=== PATIENT | female | born 1950 | race Caucasian/White ===

== ENCOUNTER 2024-01-25 10:04 | Outpatient (CLI) | payer MEDICARE, SELFPAY ==
--- NOTE | ~2024-01-25 | MM_ITS ---
EXAMINATION: MM screening ken BI w nancy HISTORY: Screening mammogram TECHNIQUE: Craniocaudal and mediolateral oblique 3-D tomosynthesis images were obtained and synthetic 2-D images were generated. CAD analysis was submitted and interpreted. COMPARISON: No prior mammogram is available for comparison at this institution. BREAST PARENCHYMAL COMPOSITION:Not Dense. The breasts are almost entirely fatty FINDINGS: No suspicious mass, calcification, or architectural distortion are identified in either justa ast to suggest malignancy. There has been no suspicious interval change. IMPRESSION: No mammographic evidence of malignancy. Recommend routine screening mammography in one year. BI-RADS Category 1: Negative Reviewed, dictated and finalized at location . 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
--- NOTE | ~2024-01-25 | DEXA_ITS ---
Bone Density Report Name: KATHRYN KEARNS Age: 73 Sex: Female Ethnicity: White Date of : 1950 Indication: postmenopausal; screening for osteoporosis; height loss; Referring Provider: HARI VELÁSQUEZ Study: Bone densitometry was performed. Exam Date: January 25, 2024 Accession number: [id number] Bone Density: Region BMD T-score Z-score Classification AP Spine(L1-L4) 0.824 -2.0 0.2 Osteopenia Femoral Neck (Left) 0.418 -3.9 -2.0 Osteoporosis Total Hip (Left) 0.718 -1.8 -0.2 Osteopenia Femoral Neck (Right) 0.454 -3.6 -1.7 Osteoporosis Total Hip (Right) 0.666 -2.3 -0.7 Osteopenia Total Hip Mean 0.692 -2.1 -0.5 Osteopenia World Health Organization criteria for BMD impression classify patients as: Normal (T-score at or above -1.0), Osteopenia (T-score between -1.0 and -2.5), or Osteoporosis (T-score at or below -2.5). 10-year Fracture Risk: FRAX not reported because: Some T-score for Spine Total or Hip Total or Femoral Neck at or below -2.5 Clinical Information Provided by Patient: Has used the following medications: Vitamin D Patient maximum height was 63 Menopause Age: 53 No regular weight bearing exercise Drinks caffeinated beverages Onset of menses at age 14 Number of children 1 Impression: The patient has osteoporosis, based on the Left Femoral Neck T-score. Discussion: HIGH RISK OF FRACTURE. BONE DENSITY IS UNDESIRABLY LOW AT ONE OR MORE SKELETAL SITES, CONSISTENT WITH OSTEOPOROSIS. ALSO, BONE DENSITY IS LOWER THAN EXPECTED FOR AGE AND SEX AT ONE OR MORE SKELETAL SITES; RECOMMEND A DILIGENT SEARCH FOR SECONDARY CAUSES OF BONE LOSS. This patient's lowest T-score meets the World Health Organization's (WHO) criteria for osteoporosis at one or more sites (T-score -2.5 or below). In untreated patients, the risk of osteoporotic fracture increases approximately two-fold for each 1.0 SD decrease in T-score. Low bone density is not the only risk factor for fracture; also consider factors such as patient's age, frailty or poor health, risk of falling, risk of injury, previous osteoporotic fracture, family history of osteoporosis, cigarette smoking, low body weight, etc. Not everyone with low bone mineral density has osteoporosis; osteomalacia and other metabolic bone disorders should also be considered. Patients who have osteoporosis should be evaluated for specific diseases and conditions (secondary causes) that may cause or contribute to bone loss. The [place] [employer] Endocrinologists (AACE) and National Osteoporosis Foundation (NOF) recommend pharmacologic intervention for all postmenopausal women whose T-score is in this range. Also, this patient's bone mineral density is below the range considered normal for healthy age-, sex-, and race-matched controls at least one site (Z-score -2.0 or below). This warrants careful evaluation for diseases and conditions that may contribute to accelerated bone loss. The patient should follow a healthful lifestyle (good nutrition with adequate calcium and vitamin D, and appropriate weight-bearing exercise). Follow-Up: Consider a repeat BMD and Vertebral Fracture Assessment (VFA) exam in 2 years or sooner if medically necessary, to reassess this patient's status. Reported by: MADAY on 01/25/2024 10:52:00 AM. Reviewed, dictated and finalized at location AHernesto HASKINS
== END 2024-01-25 10:05 | disposition home or self-care (01) ==
LOC: ANHIMG 10:04
PROVIDERS: PCP Family Medicine; Visit Provider Family Medicine
DX: Z12.31 Encounter for screening mammogram for malignant neoplasm of breast (principal); M85.89 Other specified disorders of bone density and structure, multiple sites; Z78.0 Asymptomatic menopausal state
CPT/HCPCS: 77063; 77067; 77080

== ENCOUNTER 2024-08-03 10:08 | Inpatient (IN) | payer MEDICARE, SELFPAY ==
--- NOTE | ~2024-08-03 | CT_ITS ---
EXAMINATION: CT abdomen pelvis wo con DATE: 08/03/2024 11:59 INDICATION: Leukocytosis, elevated liver function tests and acute renal insufficiency TECHNIQUE: Computed tomography (CT) of the abdomen and pelvis was performed without intravenous contr ast. Automated exposure control and iterative reconstruction technique were employed. The dose-length product was 243.85 mGy-cm. COMPARISON: None FINDINGS: Minimal dependent atelectasis in bilateral lower lobes. Heart size is normal. Atherosclerotic coronar y artery calcific location. No pericardial or pleural effusion. 5.4 cm bilobed cyst at the caudal tip of the liver. Gallbladder, spleen, pancreas, bilateral adrenal glands and kidneys are normal. Modera te diverticulosis along the sigmoid colon without adjacent from trace stranding to suggest diverticul itis. Small bowel and appendix are normal. Bladder is normal. Calcified uterine fibroid. Bilateral ad nexal tubal ligation rings. No free intraperitoneal gas or fluid. No pathologically enlarged abdomina l or pelvic lymphadenopathy. Mild lumbar and lower thoracic spondylosis. IMPRESSION: 1. No acute intra-abdominal/pelvic process. 2. Diverticulosis. 3. Calcified uterine fibroids. Reviewed, dictated and finalized at location A.
--- NOTE | ~2024-08-03 | XR_ITS ---
EXAMINATION: XR chest 1V portable DATE: 08/03/2024 11:06 INDICATION: Weakness TECHNIQUE: frontal view of the chest was obtained. COMPARISON: None FINDINGS: Mild linear discoid atelectasis at the lateral left lower lung zone. The cardiomediastinal silhouette is normal. Mild to moderate degenerative skeletal changes at the cervical spine and bilateral should ers. IMPRESSION: 1. Mild atelectasis in the left lower lung zone. No other acute cardiopulmonary disease. Reviewed, dictated and finalized at location A.
--- NOTE | 2024-08-03 10:16 | ECG_ITS ---
Test Date: 2024-08-03 10:22:54 Measurements Intervals [place] Rate: 95 P: 0 AL: 0 QRS: -1 QRSD: 152 T: -52 QT: 381 QTc: 480 Interpretive Statements ATRIAL TACHYCARDIA WITH VARIABLE BLOCK LEFT BUNDLE BRANCH BLOCK BASELINE ARTIFACT- I, II, III, AVR, AVL, AVF, V4-V6 ABNORMAL ECG No previous ECG available for comparison Electronically Signed On 08-03-2024 19:52:16 CDT by Leodan Vazquez D.O.
[2024-08-03 10:19] VITALS: BP 150/118; PULSE 112; RESP 24; TEMP 36.5; O2SAT 98
[2024-08-03 10:26] VITALS: O2SAT 98
[2024-08-03] MEDS: LACTATED RINGERS 1,000 ML 999 ML IV CONT ×2 (10:42→14:06)
[2024-08-03 10:43] VITALS: BP 146/109; PULSE 94; RESP 27; O2SAT 99
[2024-08-03 10:45] LABS: Basophils Absolute Auto 0.1 K/mm3 (0.0-0.1); Basophils Percent Auto 0.2 % (0.2-1.2); Hematocrit 53.4 % (37.0-47.0); Hemoglobin 16.2 g/dL (12.0-15.0); Immature Granulocyte Absolute 0.66 K/mm3 (0.00-0.031); Immature Granulocyte Percent A 2.3 % (0-0.5); Lymphocytes Percent Auto 7.7 % (18.3-44.2); Mean Corpuscular HGB Conc 30.3 g/dl (32-36); Mean Corpuscular Hemoglobin 29.3 pg (26-34); Mean Corpuscular Volume 96.6 fl (80-100); Mean Platelet Volume 10.8 fl (7.4-10.4); Monocytes Absolute Auto 2.4 K/mm3 (0.1-0.6); Monocytes Percent Auto 8.3 % (2.6-8.5); Neutrophils Absolute Auto 23.3 K/mm3 (1.3-6.7); Neutrophils Percent Auto 81.5 % (45.5-73.1); Platelet Count Result 374 k/mm3 (150-375); Red Blood Count 5.53 M/mm3 (4.2-5.4); White Blood Count 28.6 K/mm3 (4.5-10.0)
[2024-08-03 10:54] LABS: Add Urine Microscopic? YES; Appearance Urine Clear (Clear); Bacteria Urine None Seen /hpf; Bilirubin Urine Negative (Negative); Blood Urine 2+ (Negative); Color Urine Yellow (Yellow); Glucose Urine UA 3+ mg/dL (Negative); Hyaline Casts Urine Present /lpf; Ketones Urine 2+ mg/dL (Negative); Leukocyte Esterase Ur Negative LEU/UL (Negative); Need Manual Microscopic Reviewed; Nitrate Urine Negative (Negative); Protein Urine 1+ mg/dL (Negative); RBC Urine 0-2 /hpf (0-2); Specific Grav Ur 1.029 (1.001-1.035); Squamous Epithelial Cell Urine None Seen /hpf (Few); Urobilinogen Urine 0.2 mg/dL (<2.0); WBC Urine 0-5 /hpf (0-3); pH Urine 5.5 (5.0-9.0)
[2024-08-03 10:56] LABS: Alanine Aminotransferase 389 U/L (6-35); Albumin Level 4.8 g/dL (3.5-5.1); Alkaline Phosphatase 67 U/L (38-126); Aspartate Amino Transferase 646 U/L (14-36); Bilirubin,Total 0.6 mg/dL (0.2-1.3); Blood Urea Nitrogen 32 mg/dL (7-17); Calcium 9.5 mg/dL (8.4-10.2); Carbon Dioxide < 5 mmol/L (22-30); Chloride 105 mmol/L (98-107); Estimated CRCL calculation 17 ml/min; Estimated Glomerular Filt Rate 23; Glucose 451 mg/dL (65-110); Potassium 4.6 mmol/L (3.4-5.0); Sodium 139 mmol/L (137-145)
--- NOTE | 2024-08-03 10:56 | PC.NURSE ---
Bedside report given to Anh Rucker RN, all questions answered
[2024-08-03 13:23] LABS: Magnesium 3.1 mg/dL (1.6-2.3); Phosphorus 5.4 mg/dL (2.5-4.5)
[2024-08-03 13:26] LABS: Hemoglobin A1C 7.5 % (<5.7)
[2024-08-03 13:40] VITALS: PULSE 110; RESP 23; O2SAT 97
[2024-08-03 13:51] LABS: Fractional Inspired Oxygen 21 %; HCO3 VBG 8.1 mEq/l (24.0-30.0)
[2024-08-03 13:57] LABS: pH VBG 7.108 (7.300-7.400)
[2024-08-03 13:58] LABS: Device ROOM AIR; PCO2 VBG 26.3 mmHg (42.0-48.0); PO2 VBG < 27.0 mmHg (35.0-45.0)
--- NOTE | 2024-08-03 13:59 | PCRCNOTE ---
VBG LATE DUE TO INTERNET BEING DOWN
[2024-08-03] MEDS: INSULIN HUMAN REGULAR (*BKC) 100 UNITS/ML 8.6 UNITS IV PUSH (14:02)
[2024-08-03] MEDS: INSULIN HUMAN REGULAR (*BKC) 100 UNITS in SODIUM CHLORIDE 0.9% IV 99 ML 5.74 UNITS IV CONT (14:05)
--- NOTE | 2024-08-03 14:05 | WPDCNINT ---
Assessment and Plan Assessment and plan (1) Type 2 diabetes mellitus: Code(s): E11.9 - Type 2 diabetes mellitus without complications Status: Acute Assessment and Plan: Patient presented with hyperglycemia, excessive sleepiness, lethargy -in the ER patient was found to be in diabetic ketoacidosis, elevated anion gap, undetectable CO2 can hyperglycemia -patient was given 1 L IV fluid bolus after which the patient pulled out her IV line as she has cognitive impairment -a 2nd IV line was inserted, patient receiving a 2nd IV fluid bolus and started on insulin infusion -continue insulin infusion per DKA protocol -once anion gap closes and CO2 improves and transition to long-acting insulin sliding scale insert -hemoglobin A1c is 7.5 this admission -elevated WBC count to 28.6 -UA is not reflective of UTI -Chest x-ray showed mild atelectasis in the left lower lung zone. No other acute cardiopulmonary disease CT abdomen and pelvis without contrast showed no acute intra abdominal/pelvic process, diverticulosis, calcified uterine fibroids. -will hold off antibiotics -check serial BMPs per DKA protocol Acute kidney injury: Likely related to decreased p.o. intake, increased urine output, diabetic ketoacidosis -will give additional IV fluid bolus once she comes to the ICU -monitor urine output, renal function and electrolytes -no history of chronic kidney disease as per -creatinine on admission was 2.12 New onset irregularly irregular rhythm,, rate controlled could be related severe acidosis, -will give a therapeutic dose of Lovenox -continue to monitor, blood pressure is stable (2) Hyperlipidemia: Code(s): E78.5 - Hyperlipidemia, unspecified Status: Acute Assessment and Plan: will restart atorvastatin when patient starts taking p.o. (3) Cognitive impairment: Code(s): R41.89 - Other symptoms and signs involving cognitive functions and awareness Status: Acute Assessment and Plan: According to the primary care provider's note patient has severe cognitive impairment Plan DVT prophylaxis: Lovenox Stress ulcer prophylaxis: Proton Nutrition: NPO for now Code Status: Full code Critical Care Time Spent: 48 minutes Discussed with patient's at bedside in the ER, updated with patient's condition, plan of care. I answered all his questions Due to a high probability of clinically significant, life threatening deterioration, the patient required my highest level of preparedness to intervene emergently and I personally spent this critical care time directly and personally managing the patient. This critical care time included obtaining a history; examining the patient; pulse oximetry; ordering and review of studies; arranging urgent treatment with development of a management plan; evaluation of patient's response to treatment; frequent reassessment; and discussions with other providers. It was exclusive of separately billable procedures and treating other patients and teaching time. Please see Assessment and Plan section and the rest of the note for further information on patient assessment and treatment This dictation may have been done utilizing a voice recognition system. Attempts have been made to correct errors. However, there may be uncorrected grammatical, spelling, and recognitions errors present. 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 intake and hyperglycemia. History was obtained from , stated that she has not been eating since Sunday08/01/2024, and has been sleeping a lot. On the day of admission he called his daughter and both of them could not get her out of bed that she was significantly weak and lethargic. Daughter in the car and brought to the ED which she was found to be diabetic ketoacidosis with elevated blood sugars increased anion gap and undetectable CO2 <5. WBC count of 28.6, hemoglobin 16.2, platelets 374. VBG showed a pH of 7.108. Sodium 139, potassium 4.6, chloride 105, CO2<5, BUN 32, creatinine 2.12 (no baseline creatinine available in our system) patient's denies any chronic kidney disease. Blood sugars were 451, hemoglobin A1c of 7.5, phosphorus 5.4, magnesium 3.1, AST 646, ALT 389 1 total bili 0.6. Urinalysis is positive for proteins, glucose, ketones and blood, not reflective of UTI Chest x-ray showed mild atelectasis in the left lower lung zone. No other acute cardiopulmonary disease CT abdomen and pelvis without contrast showed no acute intra abdominal/pelvic process, diverticulosis, calcified uterine fibroids. Patient was seen and examined in the ER. Is awake, alert, not oriented to place or person, she is only oriented to herself, knew the date of . She thought she is at home. According the and notes from primary care provider she has significant cognitive impairment. According the he has a sedentary lifestyle, denies any tobacco, alcohol or illicit drug abuse. Patient denies any headache, vision changes (though she states she wears glasses), also denies chest pain, shortness a breath, abdominal pain, nausea vomiting at this time. According the patient has been taking her medications regularly, metformin and Jardiance. Patient's denies any congestive heart failure history Review of Systems Review of Systems: All systems reviewed & are unremarkable except as noted in HPI and below PMFSH Past Medical History Medical History Diabetes Allergies Surgical History Surgical History History of parathyroid surgery Social History Social History Social History: Caffeine Tea Daily Smoking status: Never smoker Alcohol intake: never Substance use: never Substance use type: does not use Do You Feel Safe in your Home?: Yes Lack of Transportation: No Lack of Food: Never True Current Housing: I Have Housing Concerned About Future Housing: No Difficulty Paying Gas/Electric Bills: No Difficulty Paying for Meds: No Currently Unemployed: No Difficulty w/ Childcare or Family Care: No Living arrangements: with family Gender identity (if verbalized by the patient): Female Sexual Orientation (if Verbalized by the Patient): Straight or Heterosexual Meds Home Medications and Allergies Home Medications ?Medication ?Instructions ?Recorded ?Confirmed ?Type alendronate 70 mg tablet 70 mg PO WEEKLY #13 tabs 02/13/24 05/21/24 Rx atorvastatin 40 mg tablet (Lipitor) 40 mg PO QHS #90 tabs 02/13/24 05/21/24 Rx empagliflozin 25 mg tablet 25 mg PO DAILY #90 tabs 02/13/24 05/21/24 Rx (Jardiance) ergocalciferol (vitamin D2) 1,250 1,250 mcg PO WEEKLY #13 caps 04/30/24 05/21/24 Rx mcg (50,000 unit) capsule (Vitamin D2) metformin 1,000 mg tablet 1,000 mg PO BIDWMEAL #180 tabs 05/29/24 Rx Allergies Allergy/AdvReac Type Severity Reaction Status Date / Time No Known Allergies Allergy Verified 08/03/24 10:10 Vital Signs Vital Signs - 24 hr 08/03/24 10:19 08/03/24 10:26 08/03/24 10:43 Temperature 97.7 F Pulse Rate 112 H 94 Respiratory Rate 24 H 27 H Blood Pressure 150/118 H 146/109 H Pulse Oximetry 98 98 99 Oxygen Delivery Room Air Room Air 08/03/24 13:40 Temperature Pulse Rate 110 H Respiratory Rate 23 H Blood Pressure Pulse Oximetry 97 Oxygen Delivery Room Air Exam Narrative: General: Pleasant female, in no acute distress at this time HEENT:? Pupils equal and reactive, sclera is clear, dry mucosa Neck:? Supple Respiratory:? Clear to auscultation bilaterally, no wheezing, adequate air entry Cardiac:? Irregularly irregular, rate control Abdomen:? Soft, nontender nondistended, hypoactive bowel sound Extremities:? No edema, palpable pedal pulses Neuro:? Patient is awake, alert, follows simple commands in all extremities, oriented to only person, did not know a she has, nor the year. She was able to tell me her date of Skin:? Warm and dry Psych:? Normal mentation and affect Results Labs 08/03/24 10:34 08/03/24 10:34 Labs: Short CBC 08/03/24 Range/Units 10:34 WBC 28.6 H (4.5-10.0) K/mm3 Hgb 16.2 H (12.0-15.0) g/dL Hct 53.4 H (37.0-47.0) % Plt Count 374 (150-375) k/mm3 BMP 08/03/24 10:34 Sodium 139 Potassium 4.6 Chloride 105 Carbon Dioxide < 5 L BUN 32 H Creatinine 2.12 H Glucose 451 H Calcium 9.5 Liver Function 08/03/24 Range/Units 10:34 Total Bilirubin 0.6 (0.2-1.3) mg/dL AST 646 H (14-36) U/L ALT 389 H (6-35) U/L Alkaline Phosphatase 67 (38-126) U/L Albumin 4.8 (3.5-5.1) g/dL Urine 08/03/24 Range/Units 10:34 Urine Color Yellow (Yellow) Urine Appearance Clear (Clear) Urine pH 5.5 (5.0-9.0) Ur Specific [place] 1.029 (1.001-1.035) Urine Protein 1+ H (Negative) mg/dL Urine Glucose (UA) 3+ H (Negative) mg/dL Quality VTE Prophylaxis VTE prophylaxis: pharmacologic ordered Hospitalist MIPS Advance Care Plan I have confirmed that the patient's Advanced Care Plan is present, code status is documented, or surrogate decision maker is listed in patient medical record.: Yes Medication Reconciliation I have utilized all available resources to obtain, update and review the patients current medications (includes all prescriptions, OTC, herbals, cannabis, and nutritional supplements).: Yes
[2024-08-03 14:12] LABS: Glucose Point of Care 363 mg/dl (65-105)
[2024-08-03 14:22] VITALS: BMI 20.6
--- NOTE | 2024-08-03 14:22 | ADMGEN ---
This patient, Tanvi Cardozo, was admitted to Intensive Care Unit-5 at 1421. Patient/family oriented to hospital policies and general routines including ID bracelet, bed and alarms, visiting hours, pain management, procedures, bathroom and other care routines, personal items, smoking policy, room service/diet, and visiting hours. Information on how to activate the Rapid Response Team has been discussed. Patient/Family are encouraged to report perceived risks to care and to ask questions if they do not understand what they are told or what they should do.
[2024-08-03 14:29] VITALS: PULSE 82
[2024-08-03 14:30] LABS: Anion Gap 29 mmol/L (4-12); Blood Urea Nitrogen 33 mg/dL (7-17); Carbon Dioxide 6 mmol/L (22-30); Chloride 105 mmol/L (98-107); Estimated CRCL calculation 20 ml/min; Estimated Glomerular Filt Rate 30; Glucose 361 mg/dL (65-110); Potassium 4.9 mmol/L (3.4-5.0); Sodium 140 mmol/L (137-145)
--- NOTE | 2024-08-03 15:22 | PDCODEBLUE ---
Code Blue Note Code Blue Note Time Arrived at Code Blue: 14:58, 08/03/2024 Initial Rhythm on Arrival: PE Airway Management: Pt intubated during resuscitation Chest Compressions: Initiated upon arrival Result of Code Blue: Pt Cardiac Rhythm Post Code: Patient's spouse had us stop Chest compressions Post code rhythm was PEA Code Blue Summary: Patient arrived from the ER, DKA, on IV fluids and insulin infusion. She did have an irregular rhythm, [place] was called as patient started to have agonal breathing and was unresponsive. CPR was commenced immediately, ACLS protocol was instituted, I intubated the patient during the process of resuscitation. Please look at code blue sheet for the medications given to the patient. Patient did receive epinephrine, bicarbonate, calcium during the resuscitation. Patient's came to the room and had us stop the CPR. Time of 15:14 on 08/04/2023
--- NOTE | 2024-08-03 15:23 | PC.NURSE ---
At 1450, this RN at bedside with patient's reviewing patients past medical history, care plan and admission. At 1453, patient became unresponsive and noted to be agonally breathing. Carotid pulse palpated and absent, this nurse initiated chest compressions and called for help. Code activated. See code sheet for further documentation, rhythm, and medications administered. 1453- Code Called 1514- Time of pronounced.
--- NOTE | 2024-08-03 15:28 | PM.DDS ---
Discharge Summary Date and Time Date of : 08/03/24 Time of : 15:14 Probable Cause of Probable Cause of : Cardiopulmonary arrest, severe metabolic acidosis Summary Hospital Course: Tanvi Cardozo is a 74 year old female diabetes, vitamin-D deficiency, hyperlipidemia, osteoporosis, cognitive impairment presented the ED from home on 08/03/2024 with complains of excessive sleepiness, lethargy, decreased p.o. intake and hyperglycemia. History was obtained from , stated that she has not been eating since Sunday08/01/2024, and has been sleeping a lot. On the day of admission he called his daughter and both of them could not get her out of bed that she was significantly weak and lethargic. Daughter in the car and brought to the ED which she was found to be diabetic ketoacidosis with elevated blood sugars increased anion gap and undetectable CO2 <5. WBC count of 28.6, hemoglobin 16.2, platelets 374. VBG showed a pH of 7.108. Sodium 139, potassium 4.6, chloride 105, CO2<5, BUN 32, creatinine 2.12 (no baseline creatinine available in our system) patient's denies any chronic kidney disease. Blood sugars were 451, hemoglobin A1c of 7.5, phosphorus 5.4, magnesium 3.1, AST 646, ALT 389 1 total bili 0.6. Urinalysis is positive for proteins, glucose, ketones and blood, not reflective of UTI Chest x-ray showed mild atelectasis in the left lower lung zone. No other acute cardiopulmonary disease CT abdomen and pelvis without contrast showed no acute intra abdominal/pelvic process, diverticulosis, calcified uterine fibroids. Patient was seen and examined in the ER. Is awake, alert, not oriented to place or person, she is only oriented to herself, knew the date of . She thought she is at home. According the and notes from primary care provider she has significant cognitive impairment. According the he has a sedentary lifestyle, denies any tobacco, alcohol or illicit drug abuse. Patient denies any headache, vision changes (though she states she wears glasses), also denies chest pain, shortness a breath, abdominal pain, nausea vomiting at this time. According the patient has been taking her medications regularly, metformin and Jardiance. Patient's denies any congestive heart failure history Upon arrival to the ICU, patient was awake, alert, thin agonal breathing and went unresponsive, code blue was called Initial rhythm was pulseless electrical activity CPR was commands, patient was intubated successfully during resuscitation, ACLS protocol was instituted, patient received epinephrine, bicarbonate, calcium Code lasted 16 minutes, after which the requested that we stop CPR. Code started at 2:58 p.m. Time of 3:14 p.m. at bedside
[2024-08-03 16:21] LABS: Glucose Point of Care 384 mg/dl (65-105)
--- NOTE | 2024-08-04 13:38 | WPDPROCEDUR ---
Procedures Intubation Intubation Date: 08/03/24 Intubation Time: 15:10 Consent: Emergent intubation during code blue Laryngoscope: fiber optic video scope ET tube size: 7.5 Tube secured depth (cm): 23 Tube secured location: lips Tube placement confirmation: visualized tube passing through cords, equal breath sounds bilaterally, no breath sounds over epigastrium and confirmation by capnometry Patient tolerated procedure: well Intubation complications: none
== END 2024-08-03 15:14 | disposition expired | DRG 638 ==
LOC: ANHED 10:31 → ANHICU 08-04 13:17
PROVIDERS: Emergency Medicine; Admitting Provider Internal Medicine; Emergency Provider Emergency Medicine; PCP Family Medicine; Visit Provider Internal Medicine
DX: E11.10 Type 2 diabetes mellitus with ketoacidosis without coma (principal); N17.9 Acute kidney failure, unspecified; I48.91 Unspecified atrial fibrillation; I46.9 Cardiac arrest, cause unspecified; E78.5 Hyperlipidemia, unspecified; E55.9 Vitamin D deficiency, unspecified; M81.0 Age-related osteoporosis without current pathological fracture; G31.84 Mild cognitive impairment of uncertain or unknown etiology
CPT/HCPCS: 31500; 36415; 71045; 74176; 80048; 80053; 81001; 82803; 82948; 83036; 83735; 84100; 85025; 92950; 93005; 96361; 96374; 99285; J0171; J1815; J7120